=== PATIENT | male | born 1960 | race Caucasian/White ===

== ENCOUNTER 2022-04-19 18:10 | Emergency (ER) | payer SELFPAY ==
[~2022-04-19] VITALS: Ht 154.9 cm; Wt 92.5 kg
[2022-04-19 18:36] VITALS: BP 149/84
--- NOTE | 2022-04-19 18:53 | NUR ---
62/M WALKED IN ACCOMPANIED BY COWORKER FOR RIGHT EYE PAIN AFTER DEBRIS FELL ON EYE DURING CONSTRUCTION WORK. PT REPORTS THROBBING PAIN ACCOMPANIED BY BLURRY VISION. AAOX4, AMBULATORY. NKA PMH: DENIES
[2022-04-19] MEDS ORDERED: FLUORESCEIN OPTH STRIP 1 MG OP ONE (18:55)
[2022-04-19] MEDS ORDERED: TETRACAINE HCL/PF 0.5% OPTH 4 ML BTL OP ONE (18:55)
--- NOTE | 2022-04-19 19:10 | NUR ---
DICKSON STRIP AND TETRACAINE PULLED FOR ERMD TO ADMINISTER
--- NOTE | 2022-04-19 19:40 | NUR ---
DR LINCOLN AT BEDSIDE FOR EXAM
[2022-04-19 20:20] VITALS: BP 149/84
--- NOTE | 2022-04-19 20:20 | NUR ---
Patient discharged with v/s stable. Written and verbal after care instructions given and explained. Patient verbalized understanding. Ambulatory with steady gait. All questions addressed prior to discharge. Advised to follow up with PMD.
== END 2022-04-19 20:20 | disposition home or self-care (01) ==
LOC: MED 18:10
DX: H53.141 Visual discomfort, right eye (principal)
CPT/HCPCS: 99283